=== PATIENT | female | born 1940 | race African-American/Black ===

== ENCOUNTER 2020-02-21 12:56 | Inpatient (IN) | payer MEDICARE, MEDICAID, OTHER ==
[~2020-02-21] VITALS: Ht 162.6 cm; Wt 71.2 kg
[2020-02-21 15:06] LABS: CHLORIDE 106 mEq/L (98-107)
[2020-02-21 15:09] LABS: INR 0.9; PROTHROMBIN TIME 9.7 sec (9.6-11.0)
[2020-02-21 15:21] LABS: BASOPHILS % 0.2 % (0.0-2.0); HEMATOCRIT. 32.9 % (36.0-48.0); HEMOGLOBIN. 10.7 g/dL (12.0-16.0); LYMPHOCYTES % 17.2 % (20.0-50.0); MEAN CORPUSCULAR HEMOGLOBIN 27.6 pg (28.0-32.0); MEAN CORPUSCULAR VOLUME 84.7 fL (81.0-99.0); MEAN PLATELET VOLUME 8.2 fl (7.4-10.4); MONOCYTES % 6.2 % (2.0-8.0); NEUTROPHILS % 76.4 % (40.0-76.0); PLATELET 280 x1000/uL (130-400); RED BLOOD CELL COUNT 3.89 mill/uL (4.2-5.4); RED CELL DISTRIBUTION WIDTH 14.9 % (11.6-14.6)
[2020-02-21 15:40] LABS: CLARITY URINE TURBID (CLEAR); COLOR URINE YELLOW (YELLOW); KETONES URINE NEGATIVE (NEGATIVE); LEUKOCYTE ESTERASE URINE 3+ (NEGATIVE); NITRITE URINE POSITIVE (NEGATIVE); OCCULT BLOOD URINE 1+ (NEGATIVE); PH URINE 5.5 (4.5-8.0); PROTEIN URINE 3+ (NEGATIVE); SPECIFIC GRAVITY URINE 1.016 (1.005-1.030)
[2020-02-21] MEDS ORDERED: CEFTRIAXONE 2 G PREMIX 50 ML IV ONE (17:15)
[2020-02-21] MEDS ORDERED: MAGNESIUM/ALUMINUM HYDROXIDE/SIMETHICONE 30ML UDC PO PRN (17:45)
[2020-02-21] MEDS ORDERED: ACETAMINOPHEN 325MG TABLET PO PRN (17:45)
[2020-02-21] MEDS ORDERED: SODIUM CHLORIDE 0.45% 1,000 ML IV SCH (17:45)
[2020-02-21] MEDS: ENOXAPARIN 40MG/0.4ML SYR SUBCUT SCH (18:56)
[2020-02-21] MEDS: CLONIDINE 0.1MG TABLET PO PRN (21:24)
[2020-02-21] MEDS: FAMOTIDINE 20MG TABLET PO SCH (21:24)
[2020-02-22 04:37] LABS: CHLORIDE 108 mEq/L (98-107)
[2020-02-22 04:41] LABS: BASOPHILS % 0.2 % (0.0-2.0); HEMATOCRIT. 32.6 % (36.0-48.0); HEMOGLOBIN. 10.6 g/dL (12.0-16.0); LYMPHOCYTES % 13.6 % (20.0-50.0); MEAN CORPUSCULAR HEMOGLOBIN 27.6 pg (28.0-32.0); MEAN CORPUSCULAR VOLUME 85.2 fL (81.0-99.0); MEAN PLATELET VOLUME 8.1 fl (7.4-10.4); MONOCYTES % 4.9 % (2.0-8.0); NEUTROPHILS % 81.3 % (40.0-76.0); PLATELET 285 x1000/uL (130-400); RED BLOOD CELL COUNT 3.83 mill/uL (4.2-5.4); RED CELL DISTRIBUTION WIDTH 15.2 % (11.6-14.6)
[2020-02-22] MEDS: DOCUSATE SODIUM 250MG CAPSULE PO SCH ×2 (09:00→09:31)
[2020-02-22] MEDS: DEXT 5%/0.45% NACL 1000ML 1,000 ML IV SCH ×2 (10:48→23:31)
[2020-02-22] MEDS ORDERED: SODIUM POLYSTYRENE SULFONATE 15 G/60 ML BOT PR NR (11:00)
[2020-02-22] MEDS ORDERED: AZITHROMYCIN 500 MG TABLET PO NR (15:30)
[2020-02-22] MEDS ORDERED: AZITHROMYCIN 500MG in DEXTROSE 5% WATER 250ML IV SCH (17:00)
[2020-02-22] MEDS ORDERED: CEFTRIAXONE 1 G PREMIX 50 ML IV SCH (18:00)
[2020-02-22] MEDS ORDERED: DEXTROSE 50% WATER 50ML SYRINGE IV NR (18:40)
[2020-02-22] MEDS ORDERED: DEXTROSE 50% WATER 50ML SYRINGE IV ONE (18:42)
[2020-02-22] MEDS ORDERED: DEXTROSE 5% WATER 1,000 ML IV ONE (18:45)
[2020-02-22] MEDS ORDERED: DEXTROSE 5% WATER 1,000 ML IV NR (18:45)
[2020-02-22] MEDS: ENOXAPARIN 40MG/0.4ML SYR SUBCUT SCH (18:51)
[2020-02-22] MEDS ORDERED: DEXTROSE 50% WATER 50ML SYRINGE IV PRN (21:00)
[2020-02-22] MEDS: BLOOD SUGAR DIAGNOSTIC STRIP TEST SCH (21:00)
[2020-02-22] MEDS: FAMOTIDINE 20MG TABLET PO SCH (21:00)
[2020-02-22] MEDS: INSULIN LISPRO (LOW DOSE) 100 UNITS/ML SUBCUT SCH (21:15)
[2020-02-22 21:30] VITALS: BP_SYST 130; BP_DIAS 65; BP_DIAS 74
[2020-02-22] MEDS ORDERED: ATOR20TA65 PO (22:57)
[2020-02-22] MEDS ORDERED: BISA10SU62 RC (22:57)
[2020-02-22] MEDS ORDERED: MOM PO (22:57)
[2020-02-22] MEDS ORDERED: AMA1 PO (22:57)
[2020-02-22] MEDS ORDERED: ASCO-339 PO (22:57)
[2020-02-22] MEDS ORDERED: CYAN250010 PO (22:57)
[2020-02-22] MEDS ORDERED: MULT-230 PO (22:57)
[2020-02-22] MEDS ORDERED: DIVA250T4 PO (22:57)
[2020-02-22] MEDS ORDERED: ACET650T37 PO (22:57)
[2020-02-22] MEDS ORDERED: FERR325T6 PO (22:57)
[2020-02-22] MEDS ORDERED: DONE10TA43 PO (22:57)
[2020-02-22] MEDS ORDERED: ERGO2000 PO (22:57)
[2020-02-22] MEDS ORDERED: IPRA3AMP31 IH (22:57)
[2020-02-22] MEDS ORDERED: RISP0.2514 PO (22:57)
[2020-02-22] MEDS ORDERED: DOCU250C69 PO (22:57)
[2020-02-22] MEDS ORDERED: INSULIN REGULAR (HUMULIN R) UD 100 UNITS/ML SYR SUBCUT NR (23:00)
[2020-02-23] VITALS: BP 125/68
[2020-02-23 04:00] VITALS: BP 140/54
[2020-02-23] MEDS: INSULIN LISPRO (LOW DOSE) 100 UNITS/ML SUBCUT SCH ×4 (05:49→21:00)
[2020-02-23] MEDS: BLOOD SUGAR DIAGNOSTIC STRIP TEST SCH ×4 (05:49→21:11)
[2020-02-23 08:00] VITALS: BP 157/68
[2020-02-23] MEDS: DOCUSATE SODIUM 250MG CAPSULE PO SCH (09:01)
[2020-02-23] MEDS: AZITHROMYCIN 250 MG TABLET PO SCH (09:02)
[2020-02-23] MEDS: DEXT 5%/0.45% NACL 1000ML 1,000 ML IV SCH (12:04)
[2020-02-23 12:33] LABS: COVID-19 PCR RNA DETECTED
[2020-02-23 12:34] LABS: COVID-19 PCR RNA NOT DETECTED
[2020-02-23 12:51] VITALS: BP 107/71
[2020-02-23 14:55] LABS: BASOPHILS % 0.4 % (0.0-2.0); EOSINOPHILS % 0.1 % (0.0-5.0); HEMATOCRIT. 33.4 % (36.0-48.0); HEMOGLOBIN. 10.9 g/dL (12.0-16.0); LYMPHOCYTES % 13.5 % (20.0-50.0); MEAN CORPUSCULAR HEMOGLOBIN 27.6 pg (28.0-32.0); MEAN CORPUSCULAR VOLUME 84.3 fL (81.0-99.0); MEAN PLATELET VOLUME 8.2 fl (7.4-10.4); MONOCYTES % 5.2 % (2.0-8.0); NEUTROPHILS % 80.8 % (40.0-76.0); PLATELET 326 x1000/uL (130-400); RED BLOOD CELL COUNT 3.96 mill/uL (4.2-5.4); RED CELL DISTRIBUTION WIDTH 15.1 % (11.6-14.6)
[2020-02-23] MEDS: CEFTRIAXONE 1 G PREMIX 50 ML IV SCH (16:35)
[2020-02-23] MEDS: ENOXAPARIN 40MG/0.4ML SYR SUBCUT SCH (16:36)
[2020-02-23 16:56] VITALS: BP 154/58
[2020-02-23 20:00] VITALS: BP 149/54
[2020-02-23] MEDS: FAMOTIDINE 20MG TABLET PO SCH (21:00)
[2020-02-24] VITALS: BP 149/84
[2020-02-24] MEDS: DEXT 5%/0.45% NACL 1000ML 1,000 ML IV SCH ×2 (03:02→15:20)
[2020-02-24 04:00] VITALS: BP 150/66
[2020-02-24 05:30] LABS: PHOSPHORUS 3.1 mg/dL (2.5-4.9)
[2020-02-24] MEDS: INSULIN LISPRO (LOW DOSE) 100 UNITS/ML SUBCUT SCH ×4 (05:48→21:00)
[2020-02-24] MEDS: BLOOD SUGAR DIAGNOSTIC STRIP TEST SCH ×4 (05:48→21:57)
[2020-02-24] MEDS: ZINC SULFATE 220 MG ( 50 ) CAPSULE PO SCH (09:20)
[2020-02-24] MEDS: DOCUSATE SODIUM 250MG CAPSULE PO SCH (09:20)
[2020-02-24] MEDS: AZITHROMYCIN 250 MG TABLET PO SCH (09:20)
[2020-02-24] MEDS: ASCORBIC ACID 500 MG TABLET PO SCH ×2 (09:20→21:57)
[2020-02-24] MEDS: GUAIFENESIN 600MG ER TABLET PO SCH ×2 (09:20→21:57)
[2020-02-24 09:24] VITALS: BP 161/66
[2020-02-24] MEDS: CLONIDINE 0.1MG TABLET PO PRN ×2 (09:24→22:01)
[2020-02-24 11:52] VITALS: BP 113/59
[2020-02-24 12:20] LABS: TOTAL IRON BINDING CAPACITY 46 ug/dL (250-450)
[2020-02-24] MEDS: ERGOCALCIFEROL 50000UNITS CAPSULE PO SCH (15:19)
[2020-02-24 15:37] LABS: CHLORIDE 107 mEq/L (98-107)
[2020-02-24] MEDS ORDERED: SODIUM POLYSTYRENE SULFONATE 15 G/60 ML BOT PO SCH (17:00)
[2020-02-24] MEDS: ENOXAPARIN 40MG/0.4ML SYR SUBCUT SCH (17:18)
[2020-02-24] MEDS: CEFTRIAXONE 1 G PREMIX 50 ML IV SCH (17:18)
[2020-02-24] MEDS: MONTELUKAST SODIUM 10MG TABLET PO SCH (17:19)
[2020-02-24 20:00] VITALS: BP 161/73
[2020-02-24] MEDS: FAMOTIDINE 20MG TABLET PO SCH (21:57)
[2020-02-25] VITALS: BP 159/75
[2020-02-25 04:00] VITALS: BP 150/69
[2020-02-25] MEDS: INSULIN LISPRO (LOW DOSE) 100 UNITS/ML SUBCUT SCH ×4 (05:52→21:30)
[2020-02-25] MEDS: BLOOD SUGAR DIAGNOSTIC STRIP TEST SCH ×4 (05:52→21:27)
[2020-02-25 07:07] LABS: MEAN CORPUSCULAR HEMOGLOBIN 28.5 pg (28.0-32.0); MEAN CORPUSCULAR VOLUME 82.9 fL (81.0-99.0); MEAN PLATELET VOLUME 7.5 fl (7.4-10.4); PLATELET 410 x1000/uL (130-400); RED BLOOD CELL COUNT 3.49 mill/uL (4.2-5.4); RED CELL DISTRIBUTION WIDTH 14.8 % (11.6-14.6)
[2020-02-25 07:45] LABS: CHLORIDE 106 mEq/L (98-107)
[2020-02-25 08:00] VITALS: BP 155/71
[2020-02-25] MEDS: ASCORBIC ACID 500 MG TABLET PO SCH ×2 (09:07→21:27)
[2020-02-25] MEDS: AZITHROMYCIN 250 MG TABLET PO SCH (09:08)
[2020-02-25] MEDS: DOCUSATE SODIUM 250MG CAPSULE PO SCH (09:08)
[2020-02-25] MEDS: GUAIFENESIN 600MG ER TABLET PO SCH ×2 (09:08→21:27)
[2020-02-25] MEDS: ZINC SULFATE 220 MG ( 50 ) CAPSULE PO SCH (09:08)
[2020-02-25 11:20] LABS: PLATELET ESTIMATE NORMAL
[2020-02-25 12:00] VITALS: BP 142/66
[2020-02-25 13:06] LABS: INSULIN 3.9 uIU/mL (2.6-24.9)
[2020-02-25] MEDS: ONDANSETRON HCL 4MG/2ML INJ IV PRN (15:02)
[2020-02-25 16:00] VITALS: BP 130/62
[2020-02-25] MEDS: CEFTRIAXONE 1 G PREMIX 50 ML IV SCH (17:30)
[2020-02-25] MEDS: ENOXAPARIN 40MG/0.4ML SYR SUBCUT SCH (17:31)
[2020-02-25] MEDS: MONTELUKAST SODIUM 10MG TABLET PO SCH (17:31)
[2020-02-25 20:00] VITALS: BP 143/67
[2020-02-25] MEDS: FAMOTIDINE 20MG TABLET PO SCH (21:27)
[2020-02-26] VITALS: BP 113/50
[2020-02-26 04:00] VITALS: BP 146/68
[2020-02-26] MEDS: BLOOD SUGAR DIAGNOSTIC STRIP TEST SCH ×4 (06:22→21:47)
[2020-02-26] MEDS: INSULIN LISPRO (LOW DOSE) 100 UNITS/ML SUBCUT SCH ×4 (06:22→21:00)
[2020-02-26 08:00] VITALS: BP 151/52
[2020-02-26] MEDS: ASCORBIC ACID 500 MG TABLET PO SCH ×2 (08:31→21:47)
[2020-02-26] MEDS: ZINC SULFATE 220 MG ( 50 ) CAPSULE PO SCH (08:31)
[2020-02-26] MEDS: GUAIFENESIN 600MG ER TABLET PO SCH ×2 (08:31→21:47)
[2020-02-26] MEDS: DOCUSATE SODIUM 250MG CAPSULE PO SCH (08:32)
[2020-02-26] MEDS: AZITHROMYCIN 250 MG TABLET PO SCH (08:32)
[2020-02-26 12:19] VITALS: BP 110/54
[2020-02-26 14:09] LABS: PRO INSULIN 4.5 pmol/L (0.0-10.0)
[2020-02-26 16:21] VITALS: BP 160/58
[2020-02-26] MEDS: MONTELUKAST SODIUM 10MG TABLET PO SCH (16:27)
[2020-02-26] MEDS: ENOXAPARIN 40MG/0.4ML SYR SUBCUT SCH (17:31)
[2020-02-26] MEDS: LIDOCAINE HCL 4% CREAM 76GM TUBE TP SCH (17:31)
[2020-02-26] MEDS: CEFTRIAXONE 1 G PREMIX 50 ML IV SCH (17:34)
[2020-02-26 20:00] VITALS: BP 148/45
[2020-02-26] MEDS: FAMOTIDINE 20MG TABLET PO SCH (21:47)
[2020-02-27] VITALS (7 sets, daily range): BP systolic 111–165; BP diastolic 49–70
[2020-02-27] MEDS: LIDOCAINE HCL 4% CREAM 76GM TUBE TP SCH ×2 (06:10→18:00)
[2020-02-27] MEDS: BLOOD SUGAR DIAGNOSTIC STRIP TEST SCH ×4 (06:10→21:00)
[2020-02-27] MEDS: INSULIN LISPRO (LOW DOSE) 100 UNITS/ML SUBCUT SCH ×4 (06:11→21:00)
[2020-02-27] MEDS: ASCORBIC ACID 500 MG TABLET PO SCH ×2 (09:56→21:00)
[2020-02-27] MEDS: DOCUSATE SODIUM 250MG CAPSULE PO SCH (09:56)
[2020-02-27] MEDS: AZITHROMYCIN 250 MG TABLET PO SCH (09:56)
[2020-02-27] MEDS: ZINC SULFATE 220 MG ( 50 ) CAPSULE PO SCH (09:56)
[2020-02-27] MEDS: GUAIFENESIN 600MG ER TABLET PO SCH ×2 (13:01→21:00)
[2020-02-27 18:24] LABS: HEMATOCRIT. 27.5 % (36.0-48.0); HEMOGLOBIN. 9.4 g/dL (12.0-16.0); MEAN CORPUSCULAR HEMOGLOBIN 28.3 pg (28.0-32.0); MEAN CORPUSCULAR VOLUME 82.6 fL (81.0-99.0); MEAN PLATELET VOLUME 7.1 fl (7.4-10.4); PLATELET 635 x1000/uL (130-400); RED BLOOD CELL COUNT 3.33 mill/uL (4.2-5.4); RED CELL DISTRIBUTION WIDTH 15.4 % (11.6-14.6)
[2020-02-27] MEDS: MONTELUKAST SODIUM 10MG TABLET PO SCH (18:45)
[2020-02-27] MEDS: ENOXAPARIN 40MG/0.4ML SYR SUBCUT SCH (18:46)
[2020-02-27] MEDS: CEFTRIAXONE 1 G PREMIX 50 ML IV SCH (18:46)
[2020-02-27 19:05] LABS: PLATELET ESTIMATE INCREASED
[2020-02-27] MEDS: FAMOTIDINE 20MG TABLET PO SCH (21:00)
[2020-02-28] VITALS: BP 155/66
[2020-02-28 04:00] VITALS: BP 159/76
[2020-02-28] MEDS: BLOOD SUGAR DIAGNOSTIC STRIP TEST SCH ×4 (05:44→21:36)
[2020-02-28] MEDS: LIDOCAINE HCL 4% CREAM 76GM TUBE TP SCH ×2 (05:44→17:27)
[2020-02-28] MEDS: INSULIN LISPRO (LOW DOSE) 100 UNITS/ML SUBCUT SCH ×4 (05:45→21:00)
[2020-02-28] MEDS: ASCORBIC ACID 500 MG TABLET PO SCH ×2 (08:51→21:36)
[2020-02-28] MEDS: DOCUSATE SODIUM 250MG CAPSULE PO SCH (08:51)
[2020-02-28] MEDS: GUAIFENESIN 600MG ER TABLET PO SCH ×2 (08:51→21:36)
[2020-02-28] MEDS: ZINC SULFATE 220 MG ( 50 ) CAPSULE PO SCH (08:51)
[2020-02-28 09:50] VITALS: BP 148/84
[2020-02-28 12:21] VITALS: BP 164/69
[2020-02-28] MEDS: SODIUM CHLORIDE 0.45% 1,000 ML IV SCH ×2 (14:18→23:20)
[2020-02-28 16:56] VITALS: BP 164/74
[2020-02-28] MEDS: ENOXAPARIN 40MG/0.4ML SYR SUBCUT SCH (17:26)
[2020-02-28] MEDS: MONTELUKAST SODIUM 10MG TABLET PO SCH (17:26)
[2020-02-28 20:00] VITALS: BP 162/76
[2020-02-28] MEDS: FAMOTIDINE 20MG TABLET PO SCH (21:36)
[2020-02-28] MEDS: CLONIDINE 0.1MG TABLET PO PRN (21:36)
[2020-02-29] VITALS: BP 155/70
[2020-02-29 04:00] VITALS: BP 165/69
[2020-02-29] MEDS: CLONIDINE 0.1MG TABLET PO PRN (05:45)
[2020-02-29] MEDS: LIDOCAINE HCL 4% CREAM 76GM TUBE TP SCH ×2 (05:47→17:23)
[2020-02-29] MEDS: BLOOD SUGAR DIAGNOSTIC STRIP TEST SCH ×4 (05:47→21:31)
[2020-02-29] MEDS: INSULIN LISPRO (LOW DOSE) 100 UNITS/ML SUBCUT SCH ×4 (06:10→21:00)
[2020-02-29 08:00] VITALS: BP 162/63
[2020-02-29] MEDS: ASCORBIC ACID 500 MG TABLET PO SCH ×2 (09:00→21:39)
[2020-02-29] MEDS: DOCUSATE SODIUM 250MG CAPSULE PO SCH (09:00)
[2020-02-29] MEDS: ZINC SULFATE 220 MG ( 50 ) CAPSULE PO SCH (09:00)
[2020-02-29] MEDS: GUAIFENESIN 600MG ER TABLET PO SCH ×2 (09:00→21:39)
[2020-02-29 12:00] VITALS: BP 156/60
[2020-02-29] MEDS: NITROFURANTOIN 100MG M/M CAPSULE PO SCH ×2 (14:12→21:39)
[2020-02-29 16:00] VITALS: BP 129/66
[2020-02-29] MEDS: MONTELUKAST SODIUM 10MG TABLET PO SCH (17:15)
[2020-02-29] MEDS: ENOXAPARIN 40MG/0.4ML SYR SUBCUT SCH (17:15)
[2020-02-29 20:00] VITALS: BP 124/58
[2020-02-29] MEDS: FAMOTIDINE 20MG TABLET PO SCH (21:39)
[2020-03-01] VITALS: BP 165/67
[2020-03-01] MEDS: CLONIDINE 0.1MG TABLET PO PRN ×3 (00:17→17:11)
[2020-03-01 04:00] VITALS: BP 158/67
[2020-03-01] MEDS: BLOOD SUGAR DIAGNOSTIC STRIP TEST SCH ×4 (05:45→21:39)
[2020-03-01] MEDS: LIDOCAINE HCL 4% CREAM 76GM TUBE TP SCH ×2 (05:45→17:12)
[2020-03-01] MEDS: INSULIN LISPRO (LOW DOSE) 100 UNITS/ML SUBCUT SCH ×4 (07:10→21:00)
[2020-03-01 08:00] VITALS: BP 163/77
[2020-03-01] MEDS: DOCUSATE SODIUM 250MG CAPSULE PO SCH (09:21)
[2020-03-01] MEDS: ASCORBIC ACID 500 MG TABLET PO SCH ×2 (09:21→21:46)
[2020-03-01] MEDS: ZINC SULFATE 220 MG ( 50 ) CAPSULE PO SCH (09:21)
[2020-03-01] MEDS: NITROFURANTOIN 100MG M/M CAPSULE PO SCH ×2 (09:21→21:45)
[2020-03-01] MEDS: GUAIFENESIN 600MG ER TABLET PO SCH ×2 (09:21→21:46)
[2020-03-01 10:34] LABS: CHLORIDE 108 mEq/L (98-107)
[2020-03-01 10:36] LABS: BASOPHILS % 0.3 % (0.0-2.0); EOSINOPHILS % 1.7 % (0.0-5.0); HEMATOCRIT. 30.6 % (36.0-48.0); HEMOGLOBIN. 9.9 g/dL (12.0-16.0); LYMPHOCYTES % 12.2 % (20.0-50.0); MEAN CORPUSCULAR HEMOGLOBIN 26.5 pg (28.0-32.0); MEAN CORPUSCULAR VOLUME 81.8 fL (81.0-99.0); MEAN PLATELET VOLUME 7.1 fl (7.4-10.4); NEUTROPHILS % 78.8 % (40.0-76.0); PLATELET 718 x1000/uL (130-400); RED BLOOD CELL COUNT 3.74 mill/uL (4.2-5.4)
[2020-03-01 12:00] VITALS: BP 171/69
[2020-03-01] MEDS ORDERED: SODIUM POLYSTYRENE SULFONATE 15 G/60 ML BOT PO NR (13:22)
[2020-03-01] MEDS: NIFEDIPINE XL 60MG TAB PO NR (13:46)
[2020-03-01 16:00] VITALS: BP_SYST 149; BP_SYST 167; BP_DIAS 73; BP_DIAS 76
[2020-03-01] MEDS: MONTELUKAST SODIUM 10MG TABLET PO SCH (17:11)
[2020-03-01] MEDS: ENOXAPARIN 40MG/0.4ML SYR SUBCUT SCH (17:12)
[2020-03-01] MEDS: CEFEPIME 1,000 MG in DEXTROSE 5% WATER 50 ML IV SCH (17:16)
[2020-03-01 20:00] VITALS: BP 116/66
[2020-03-01] MEDS: FAMOTIDINE 20MG TABLET PO SCH (21:46)
[2020-03-02] VITALS: BP 118/62
[2020-03-02 04:00] VITALS: BP 128/57
[2020-03-02] MEDS: LIDOCAINE HCL 4% CREAM 76GM TUBE TP SCH ×2 (05:19→17:03)
[2020-03-02] MEDS: CEFEPIME 1,000 MG in DEXTROSE 5% WATER 50 ML IV SCH ×2 (05:19→17:03)
[2020-03-02 08:00] VITALS: BP 141/59
[2020-03-02] MEDS: ZINC SULFATE 220 MG ( 50 ) CAPSULE PO SCH (09:28)
[2020-03-02] MEDS: GUAIFENESIN 600MG ER TABLET PO SCH ×2 (09:28→21:30)
[2020-03-02] MEDS: NITROFURANTOIN 100MG M/M CAPSULE PO SCH (09:28)
[2020-03-02] MEDS: DOCUSATE SODIUM 250MG CAPSULE PO SCH (09:29)
[2020-03-02] MEDS: ERGOCALCIFEROL 50000UNITS CAPSULE PO SCH (09:29)
[2020-03-02] MEDS: ASCORBIC ACID 500 MG TABLET PO SCH ×2 (09:29→21:30)
[2020-03-02] MEDS: NIFEDIPINE XL 60MG TAB PO SCH (09:29)
[2020-03-02] MEDS ORDERED: FUROSEMIDE 20MG/2ML VIAL IVP NR (09:45)
[2020-03-02 10:21] LABS: HEMATOCRIT. 30.3 % (36.0-48.0); MEAN CORPUSCULAR HEMOGLOBIN 27.4 pg (28.0-32.0); MEAN CORPUSCULAR VOLUME 82.7 fL (81.0-99.0); MEAN PLATELET VOLUME 6.7 fl (7.4-10.4); PLATELET 704 x1000/uL (130-400); RED BLOOD CELL COUNT 3.66 mill/uL (4.2-5.4); RED CELL DISTRIBUTION WIDTH 15.4 % (11.6-14.6)
[2020-03-02 12:00] VITALS: BP 106/73
[2020-03-02] MEDS: INSULIN LISPRO (LOW DOSE) 100 UNITS/ML SUBCUT SCH ×3 (12:10→21:31)
[2020-03-02] MEDS: BLOOD SUGAR DIAGNOSTIC STRIP TEST SCH ×3 (12:16→21:30)
[2020-03-02] MEDS: NIFEDIPINE XL 60MG TAB PO NR (14:29)
[2020-03-02 15:19] LABS: CHLORIDE 110 mEq/L (98-107)
[2020-03-02 16:00] VITALS: BP 107/68
[2020-03-02 16:40] LABS: PLATELET ESTIMATE INCREASED
[2020-03-02] MEDS: MONTELUKAST SODIUM 10MG TABLET PO SCH (16:57)
[2020-03-02] MEDS: ENOXAPARIN 40MG/0.4ML SYR SUBCUT SCH (17:03)
[2020-03-02 20:00] VITALS: BP 145/58
[2020-03-02] MEDS: FAMOTIDINE 20MG TABLET PO SCH (21:30)
[2020-03-02] MEDS: SODIUM CHLORIDE 0.45% 1,000 ML IV SCH (21:31)
[2020-03-03] VITALS: BP 141/77
[2020-03-03 04:00] VITALS: BP 147/73
[2020-03-03] MEDS: CEFEPIME 1,000 MG in DEXTROSE 5% WATER 50 ML IV SCH (05:32)
[2020-03-03] MEDS: LIDOCAINE HCL 4% CREAM 76GM TUBE TP SCH ×2 (05:32→18:05)
[2020-03-03 06:11] LABS: BASOPHILS % 0.4 % (0.0-2.0); EOSINOPHILS % 1.1 % (0.0-5.0); HEMATOCRIT. 29.6 % (36.0-48.0); HEMOGLOBIN. 9.8 g/dL (12.0-16.0); LYMPHOCYTES % 9.3 % (20.0-50.0); MEAN CORPUSCULAR HEMOGLOBIN 27.1 pg (28.0-32.0); MEAN CORPUSCULAR VOLUME 82.4 fL (81.0-99.0); MEAN PLATELET VOLUME 7.1 fl (7.4-10.4); MONOCYTES % 6.5 % (2.0-8.0); NEUTROPHILS % 82.7 % (40.0-76.0); PLATELET 776 x1000/uL (130-400); RED BLOOD CELL COUNT 3.59 mill/uL (4.2-5.4); RED CELL DISTRIBUTION WIDTH 15.4 % (11.6-14.6)
[2020-03-03] MEDS: INSULIN LISPRO (LOW DOSE) 100 UNITS/ML SUBCUT SCH ×4 (06:12→20:51)
[2020-03-03] MEDS: BLOOD SUGAR DIAGNOSTIC STRIP TEST SCH ×4 (06:12→20:51)
[2020-03-03 07:07] LABS: CHLORIDE 109 mEq/L (98-107)
[2020-03-03 08:00] VITALS: BP 139/73
[2020-03-03] MEDS: ASCORBIC ACID 500 MG TABLET PO SCH ×2 (08:49→21:51)
[2020-03-03] MEDS: ZINC SULFATE 220 MG ( 50 ) CAPSULE PO SCH (08:49)
[2020-03-03] MEDS: DOCUSATE SODIUM 250MG CAPSULE PO SCH (08:49)
[2020-03-03] MEDS: NIFEDIPINE XL 60MG TAB PO SCH (08:49)
[2020-03-03] MEDS: GUAIFENESIN 600MG ER TABLET PO SCH ×2 (08:50→21:51)
[2020-03-03] MEDS: SODIUM CHLORIDE 0.45% 1,000 ML IV SCH ×2 (08:50→21:50)
[2020-03-03] MEDS ORDERED: ENOXAPARIN 40MG/0.4ML SYR SUBCUT SCH (09:00)
[2020-03-03] MEDS ORDERED: FUROSEMIDE 20MG/2ML VIAL IVP SCH (09:00)
[2020-03-03] MEDS ORDERED: VANCOMYCIN 1500MG in DEXTROSE 5% WATER 250ML IV SCH (10:00)
[2020-03-03 12:00] VITALS: BP 134/74
[2020-03-03] MEDS: NIFEDIPINE XL 60MG TAB PO NR (12:55)
[2020-03-03] MEDS: PIPERACILLIN/TAZOBACTAM 3.375 G in DEXT 5% WATER 100 ML IV SCH ×3 (12:55→17:58)
[2020-03-03] MEDS ORDERED: SODIUM POLYSTYRENE SULFONATE 15 G/60 ML BOT PO SCH (14:00)
[2020-03-03 16:00] VITALS: BP 141/51
[2020-03-03] MEDS: MONTELUKAST SODIUM 10MG TABLET PO SCH (17:58)
[2020-03-03 20:00] VITALS: BP 139/63
[2020-03-03] MEDS: FAMOTIDINE 20MG TABLET PO SCH (21:51)
[2020-03-03] MEDS: ENOXAPARIN 60MG/0.6ML SYR SUBCUT SCH (21:52)
[2020-03-04] VITALS: BP 146/70
[2020-03-04] MEDS: PIPERACILLIN/TAZOBACTAM 3.375 G in DEXT 5% WATER 100 ML IV SCH ×4 (00:12→17:52)
[2020-03-04 04:00] VITALS: BP 153/79
[2020-03-04] MEDS: VANCOMYCIN 1 G PREMIX 200 ML IV SCH (05:37)
[2020-03-04] MEDS: BLOOD SUGAR DIAGNOSTIC STRIP TEST SCH ×4 (05:41→21:39)
[2020-03-04] MEDS: LIDOCAINE HCL 4% CREAM 76GM TUBE TP SCH ×2 (05:41→16:37)
[2020-03-04] MEDS: INSULIN LISPRO (LOW DOSE) 100 UNITS/ML SUBCUT SCH ×4 (06:09→21:00)
[2020-03-04 07:00] LABS: HEMATOCRIT. 30.9 % (36.0-48.0); HEMOGLOBIN. 10.3 g/dL (12.0-16.0); MEAN CORPUSCULAR HEMOGLOBIN 27.2 pg (28.0-32.0); MEAN CORPUSCULAR VOLUME 82.2 fL (81.0-99.0); MEAN PLATELET VOLUME 6.8 fl (7.4-10.4); PLATELET 762 x1000/uL (130-400); RED BLOOD CELL COUNT 3.76 mill/uL (4.2-5.4); RED CELL DISTRIBUTION WIDTH 15.3 % (11.6-14.6)
[2020-03-04 07:33] LABS: CHLORIDE 107 mEq/L (98-107)
[2020-03-04 08:00] VITALS: BP 161/72
[2020-03-04] MEDS: ONDANSETRON HCL 4MG/2ML INJ IV PRN (08:53)
[2020-03-04] MEDS: ASCORBIC ACID 500 MG TABLET PO SCH ×2 (08:54→20:23)
[2020-03-04] MEDS: ENOXAPARIN 60MG/0.6ML SYR SUBCUT SCH ×2 (08:54→20:23)
[2020-03-04] MEDS: DOCUSATE SODIUM 250MG CAPSULE PO SCH (08:54)
[2020-03-04] MEDS: GUAIFENESIN 600MG ER TABLET PO SCH ×3 (08:54→20:22)
[2020-03-04] MEDS: NIFEDIPINE XL 60MG TAB PO SCH (08:55)
[2020-03-04] MEDS: ZINC SULFATE 220 MG ( 50 ) CAPSULE PO SCH (08:55)
[2020-03-04 12:00] VITALS: BP 123/48
[2020-03-04 13:27] LABS: PLATELET ESTIMATE INCREASED
[2020-03-04] MEDS ORDERED: SODIUM POLYSTYRENE SULFONATE 15 G/60 ML BOT PO NR (14:00)
[2020-03-04 16:00] VITALS: BP 115/62
[2020-03-04] MEDS: MONTELUKAST SODIUM 10MG TABLET PO SCH (16:29)
[2020-03-04] MEDS ORDERED: ALBUTEROL 6.7GM HFA INHALER ORI PRN ×3 (17:00→17:15)
[2020-03-04] MEDS ORDERED: FUROSEMIDE 40MG/4ML VIAL IVP NR (17:00)
[2020-03-04] MEDS ORDERED: METHYLPREDNISOLONE SOD SUCC 40 MG/ML VIAL IV NR (18:07)
[2020-03-04 20:00] VITALS: BP 132/79
[2020-03-04] MEDS ORDERED: ALBUTEROL 6.7GM HFA INHALER ORI SCH (20:00)
[2020-03-04] MEDS: FAMOTIDINE 20MG TABLET PO SCH (20:24)
[2020-03-04] MEDS: METHYLPREDNISOLONE SOD SUCC 125 MG/2 ML VIAL IV SCH (20:25)
[2020-03-05] VITALS: BP 155/84
[2020-03-05 04:00] VITALS: BP 159/72
[2020-03-05] MEDS: METHYLPREDNISOLONE SOD SUCC 125 MG/2 ML VIAL IV SCH (06:00)
[2020-03-05] MEDS: LIDOCAINE HCL 4% CREAM 76GM TUBE TP SCH ×2 (06:00→18:33)
[2020-03-05] MEDS: PIPERACILLIN/TAZOBACTAM 3.375 G in DEXT 5% WATER 100 ML IV SCH ×5 (06:04→18:31)
[2020-03-05 06:15] LABS: BASOPHILS % 0.1 % (0.0-2.0); HEMATOCRIT. 30.9 % (36.0-48.0); HEMOGLOBIN. 10.2 g/dL (12.0-16.0); LYMPHOCYTES % 15.3 % (20.0-50.0); MEAN CORPUSCULAR HEMOGLOBIN 27.2 pg (28.0-32.0); MEAN CORPUSCULAR VOLUME 82.4 fL (81.0-99.0); MEAN PLATELET VOLUME 6.7 fl (7.4-10.4); MONOCYTES % 1.2 % (2.0-8.0); NEUTROPHILS % 83.4 % (40.0-76.0); PLATELET 718 x1000/uL (130-400); RED BLOOD CELL COUNT 3.75 mill/uL (4.2-5.4); RED CELL DISTRIBUTION WIDTH 15.4 % (11.6-14.6)
[2020-03-05] MEDS: INSULIN LISPRO (LOW DOSE) 100 UNITS/ML SUBCUT SCH ×4 (07:10→21:00)
[2020-03-05] MEDS: BLOOD SUGAR DIAGNOSTIC STRIP TEST SCH ×4 (07:24→21:00)
[2020-03-05 08:00] VITALS: BP 157/93
[2020-03-05] MEDS: GUAIFENESIN 600MG ER TABLET PO SCH ×2 (09:19→22:30)
[2020-03-05] MEDS: ZINC SULFATE 220 MG ( 50 ) CAPSULE PO SCH (09:19)
[2020-03-05] MEDS: ASCORBIC ACID 500 MG TABLET PO SCH ×2 (09:19→22:10)
[2020-03-05] MEDS: ENOXAPARIN 60MG/0.6ML SYR SUBCUT SCH (09:19)
[2020-03-05] MEDS: DOCUSATE SODIUM 250MG CAPSULE PO SCH (09:19)
[2020-03-05] MEDS: NIFEDIPINE XL 60MG TAB PO SCH (09:19)
[2020-03-05] MEDS: FUROSEMIDE 20MG/2ML VIAL IVP SCH (09:22)
[2020-03-05] MEDS ORDERED: FUROSEMIDE 40MG/4ML VIAL IVP NR (09:30)
[2020-03-05] MEDS: ALBUTEROL 6.7GM HFA INHALER ORI SCH ×3 (10:00→22:00)
[2020-03-05 12:00] VITALS: BP 136/70
[2020-03-05 16:00] VITALS: BP 150/81
[2020-03-05] MEDS: VANCOMYCIN 1 G PREMIX 200 ML IV SCH ×2 (18:31)
[2020-03-05] MEDS: MONTELUKAST SODIUM 10MG TABLET PO SCH (18:32)
[2020-03-05] MEDS: APIXABAN 5 MG TABLET PO SCH (18:32)
[2020-03-05 20:00] VITALS: BP 135/81
[2020-03-05] MEDS: FAMOTIDINE 20MG TABLET PO SCH (22:10)
[2020-03-06] VITALS: BP 138/111
[2020-03-06] MEDS: PIPERACILLIN/TAZOBACTAM 3.375 G in DEXT 5% WATER 100 ML IV SCH ×4 (00:41→18:10)
[2020-03-06 04:00] VITALS: BP 147/72
[2020-03-06] MEDS: METHYLPREDNISOLONE SOD SUCC 40 MG/ML VIAL IV SCH (06:00)
[2020-03-06] MEDS: LIDOCAINE HCL 4% CREAM 76GM TUBE TP SCH ×2 (06:00→18:00)
[2020-03-06] MEDS: INSULIN LISPRO (LOW DOSE) 100 UNITS/ML SUBCUT SCH ×4 (06:50→21:00)
[2020-03-06] MEDS: BLOOD SUGAR DIAGNOSTIC STRIP TEST SCH ×4 (06:50→21:23)
[2020-03-06 08:00] VITALS: BP 144/75
[2020-03-06] MEDS ORDERED: LACTULOSE 20G/30ML UDC PO NR (09:30)
[2020-03-06] MEDS: GUAIFENESIN 600MG ER TABLET PO SCH ×2 (09:55→21:22)
[2020-03-06] MEDS: ASCORBIC ACID 500 MG TABLET PO SCH ×2 (09:55→21:22)
[2020-03-06] MEDS: NIFEDIPINE XL 60MG TAB PO SCH (09:55)
[2020-03-06] MEDS: ZINC SULFATE 220 MG ( 50 ) CAPSULE PO SCH (09:55)
[2020-03-06] MEDS: DOCUSATE SODIUM 250MG CAPSULE PO SCH (09:56)
[2020-03-06] MEDS: FUROSEMIDE 20MG/2ML VIAL IVP SCH (09:56)
[2020-03-06] MEDS: APIXABAN 5 MG TABLET PO SCH ×2 (09:56→17:34)
[2020-03-06] MEDS: ALBUTEROL 6.7GM HFA INHALER ORI SCH ×4 (10:50→20:18)
[2020-03-06 12:00] VITALS: BP 145/81
[2020-03-06] MEDS: VANCOMYCIN 1 G PREMIX 200 ML IV SCH (13:51)
[2020-03-06 16:00] VITALS: BP 142/66
[2020-03-06] MEDS: MONTELUKAST SODIUM 10MG TABLET PO SCH (17:34)
[2020-03-06 20:00] VITALS: BP 137/69
[2020-03-06] MEDS: FAMOTIDINE 20MG TABLET PO SCH (21:22)
[2020-03-07] VITALS: BP 160/73
[2020-03-07] MEDS: PIPERACILLIN/TAZOBACTAM 3.375 G in DEXT 5% WATER 100 ML IV SCH ×5 (00:15→23:46)
[2020-03-07 04:00] VITALS: BP 140/68
[2020-03-07] MEDS: METHYLPREDNISOLONE SOD SUCC 40 MG/ML VIAL IV SCH ×2 (05:44→12:33)
[2020-03-07] MEDS: BLOOD SUGAR DIAGNOSTIC STRIP TEST SCH ×4 (06:39→21:12)
[2020-03-07] MEDS: INSULIN LISPRO (LOW DOSE) 100 UNITS/ML SUBCUT SCH ×4 (06:39→21:00)
[2020-03-07] MEDS: LIDOCAINE HCL 4% CREAM 76GM TUBE TP SCH ×2 (06:45→17:41)
[2020-03-07] MEDS: DOCUSATE SODIUM 250MG CAPSULE PO SCH (09:39)
[2020-03-07] MEDS: ASCORBIC ACID 500 MG TABLET PO SCH ×2 (09:39→20:59)
[2020-03-07] MEDS: ZINC SULFATE 220 MG ( 50 ) CAPSULE PO SCH (09:39)
[2020-03-07] MEDS: APIXABAN 5 MG TABLET PO SCH ×2 (09:40→17:28)
[2020-03-07] MEDS: GUAIFENESIN 600MG ER TABLET PO SCH ×2 (09:40→20:59)
[2020-03-07] MEDS: NIFEDIPINE XL 60MG TAB PO SCH (09:53)
[2020-03-07] MEDS: ALBUTEROL 6.7GM HFA INHALER ORI SCH ×2 (10:00→12:37)
[2020-03-07 10:12] LABS: BASOPHILS % 0.4 % (0.0-2.0); EOSINOPHILS % 0.8 % (0.0-5.0); HEMATOCRIT. 29.6 % (36.0-48.0); HEMOGLOBIN. 9.8 g/dL (12.0-16.0); LYMPHOCYTES % 16.2 % (20.0-50.0); MEAN CORPUSCULAR VOLUME 81.5 fL (81.0-99.0); MEAN PLATELET VOLUME 6.9 fl (7.4-10.4); MONOCYTES % 5.4 % (2.0-8.0); NEUTROPHILS % 77.2 % (40.0-76.0); PLATELET 696 x1000/uL (130-400); RED BLOOD CELL COUNT 3.64 mill/uL (4.2-5.4); RED CELL DISTRIBUTION WIDTH 15.8 % (11.6-14.6)
[2020-03-07 10:15] VITALS: BP 150/61
[2020-03-07 10:22] LABS: CHLORIDE 108 mEq/L (98-107)
[2020-03-07] MEDS ORDERED: LIDOCAINE HCL 1% 20ML VIAL (Pyxis) INJ ONE (11:47)
[2020-03-07] MEDS: FUROSEMIDE 20MG/2ML VIAL IVP SCH (12:25)
[2020-03-07 13:06] VITALS: BP 148/73
[2020-03-07] MEDS: MONTELUKAST SODIUM 10MG TABLET PO SCH (17:29)
[2020-03-07 17:55] VITALS: BP 135/62
[2020-03-07 20:00] VITALS: BP 121/49
[2020-03-07] MEDS: FAMOTIDINE 20MG TABLET PO SCH (20:59)
[2020-03-08] VITALS: BP 147/74
[2020-03-08 04:00] VITALS: BP 143/70
[2020-03-08] MEDS: PIPERACILLIN/TAZOBACTAM 3.375 G in DEXT 5% WATER 100 ML IV SCH ×3 (05:49→17:45)
[2020-03-08] MEDS: METHYLPREDNISOLONE SOD SUCC 40 MG/ML VIAL IV SCH (05:49)
[2020-03-08] MEDS: LIDOCAINE HCL 4% CREAM 76GM TUBE TP SCH ×2 (05:50→17:44)
[2020-03-08] MEDS: BLOOD SUGAR DIAGNOSTIC STRIP TEST SCH ×4 (06:38→21:55)
[2020-03-08] MEDS: INSULIN LISPRO (LOW DOSE) 100 UNITS/ML SUBCUT SCH ×4 (06:38→21:00)
[2020-03-08 08:00] VITALS: BP 162/85
[2020-03-08] MEDS: GUAIFENESIN 600MG ER TABLET PO SCH ×2 (08:42→21:50)
[2020-03-08] MEDS: ZINC SULFATE 220 MG ( 50 ) CAPSULE PO SCH (08:42)
[2020-03-08] MEDS: ASCORBIC ACID 500 MG TABLET PO SCH ×2 (08:42→21:50)
[2020-03-08] MEDS: APIXABAN 5 MG TABLET PO SCH ×2 (08:43→16:06)
[2020-03-08] MEDS: DOCUSATE SODIUM 250MG CAPSULE PO SCH (08:44)
[2020-03-08] MEDS: FUROSEMIDE 20MG/2ML VIAL IVP SCH (08:45)
[2020-03-08] MEDS: ALBUTEROL 6.7GM HFA INHALER ORI SCH ×3 (10:00→21:50)
[2020-03-08] MEDS: NIFEDIPINE XL 60MG TAB PO SCH (10:05)
[2020-03-08 12:00] VITALS: BP 164/83
[2020-03-08 15:52] LABS: HEMATOCRIT 28.2 % (36.0-48.0); HEMOGLOBIN 9.4 g/dL (12.0-16.0)
[2020-03-08 16:00] VITALS: BP 172/87
[2020-03-08] MEDS: MONTELUKAST SODIUM 10MG TABLET PO SCH (17:00)
[2020-03-08 20:44] VITALS: BP 161/76
[2020-03-08] MEDS ORDERED: VANCOMYCIN 1,000 MG in DEXT 5% WATER 250 ML IV SCH (21:00)
[2020-03-08] MEDS ORDERED: HYDRALAZINE HCL 25MG TABLET PO NR (21:30)
[2020-03-08] MEDS: FAMOTIDINE 20MG TABLET PO SCH (21:50)
[2020-03-09 00:53] VITALS: BP 117/51
[2020-03-09 04:37] VITALS: BP 121/79
[2020-03-09] MEDS: ALBUTEROL 6.7GM HFA INHALER ORI SCH ×4 (05:46→21:33)
[2020-03-09] MEDS: METHYLPREDNISOLONE SOD SUCC 40 MG/ML VIAL IV SCH (05:49)
[2020-03-09] MEDS: LIDOCAINE HCL 4% CREAM 76GM TUBE TP SCH ×2 (05:49→17:06)
[2020-03-09] MEDS: HYDRALAZINE HCL 25MG TABLET PO SCH ×3 (05:50→21:34)
[2020-03-09] MEDS: INSULIN LISPRO (LOW DOSE) 100 UNITS/ML SUBCUT SCH ×4 (06:06→20:51)
[2020-03-09] MEDS: BLOOD SUGAR DIAGNOSTIC STRIP TEST SCH ×4 (06:06→20:51)
[2020-03-09 08:00] VITALS: BP 150/60
[2020-03-09] MEDS: DOCUSATE SODIUM 250MG CAPSULE PO SCH (08:17)
[2020-03-09] MEDS: APIXABAN 5 MG TABLET PO SCH ×2 (08:20→17:06)
[2020-03-09 08:21] LABS: MEAN CORPUSCULAR HEMOGLOBIN 27.1 pg (28.0-32.0); MEAN CORPUSCULAR VOLUME 81.2 fL (81.0-99.0); PLATELET 569 x1000/uL (130-400); RED BLOOD CELL COUNT 3.47 mill/uL (4.2-5.4); RED CELL DISTRIBUTION WIDTH 15.8 % (11.6-14.6)
[2020-03-09] MEDS: FUROSEMIDE 20MG/2ML VIAL IVP SCH (08:39)
[2020-03-09] MEDS: ZINC SULFATE 220 MG ( 50 ) CAPSULE PO SCH (08:40)
[2020-03-09] MEDS: ASCORBIC ACID 500 MG TABLET PO SCH ×2 (08:40→21:33)
[2020-03-09] MEDS: GUAIFENESIN 600MG ER TABLET PO SCH ×2 (08:40→21:33)
[2020-03-09] MEDS ORDERED: SULFAMETHOXAZOLE/TRIMETHOPRIM 800/160MG TABLET PO SCH (09:00)
[2020-03-09 09:14] LABS: BASOPHILS % 0.4 % (0.0-2.0); EOSINOPHILS % 3.2 % (0.0-5.0); HEMATOCRIT. 27.4 % (36.0-48.0); LYMPHOCYTES % 13.9 % (20.0-50.0); MEAN CORPUSCULAR HEMOGLOBIN 26.9 pg (28.0-32.0); MEAN PLATELET VOLUME 7.4 fl (7.4-10.4); MONOCYTES % 3.8 % (2.0-8.0); NEUTROPHILS % 78.7 % (40.0-76.0); PLATELET 497 x1000/uL (130-400); RED BLOOD CELL COUNT 3.34 mill/uL (4.2-5.4); RED CELL DISTRIBUTION WIDTH 15.9 % (11.6-14.6)
[2020-03-09] MEDS: SULFAMETHOXAZOLE/TRIMETHOPRIM 800/160MG TABLET PO SCH ×2 (09:47→21:33)
[2020-03-09] MEDS: NIFEDIPINE XL 60MG TAB PO SCH (10:02)
[2020-03-09 12:00] VITALS: BP 115/67
[2020-03-09] MEDS ORDERED: POTASSIUM CHLORIDE 20MEQ TABLET SR PO SCH (12:00)
[2020-03-09] MEDS: ERGOCALCIFEROL 50000UNITS CAPSULE PO SCH (12:37)
[2020-03-09 16:00] VITALS: BP 144/66
[2020-03-09] MEDS: MONTELUKAST SODIUM 10MG TABLET PO SCH (17:06)
[2020-03-09 20:00] VITALS: BP 111/51
[2020-03-09] MEDS: FAMOTIDINE 20MG TABLET PO SCH (21:33)
[2020-03-10] VITALS: BP 124/63
[2020-03-10 04:00] VITALS: BP 113/52
[2020-03-10] MEDS: ALBUTEROL 6.7GM HFA INHALER ORI SCH ×3 (04:26→16:51)
[2020-03-10] MEDS: HYDRALAZINE HCL 25MG TABLET PO SCH ×2 (05:13→14:09)
[2020-03-10] MEDS: LIDOCAINE HCL 4% CREAM 76GM TUBE TP SCH ×2 (05:13→18:00)
[2020-03-10] MEDS: INSULIN LISPRO (LOW DOSE) 100 UNITS/ML SUBCUT SCH ×4 (06:16→20:41)
[2020-03-10] MEDS: BLOOD SUGAR DIAGNOSTIC STRIP TEST SCH ×4 (06:16→20:41)
[2020-03-10 08:00] VITALS: BP 113/59
[2020-03-10] MEDS: GUAIFENESIN 600MG ER TABLET PO SCH ×2 (08:37→20:34)
[2020-03-10] MEDS: ZINC SULFATE 220 MG ( 50 ) CAPSULE PO SCH (08:37)
[2020-03-10] MEDS: ASCORBIC ACID 500 MG TABLET PO SCH ×2 (08:37→20:34)
[2020-03-10] MEDS: SULFAMETHOXAZOLE/TRIMETHOPRIM 800/160MG TABLET PO SCH (08:38)
[2020-03-10] MEDS: APIXABAN 5 MG TABLET PO SCH ×2 (08:38→17:07)
[2020-03-10] MEDS: NIFEDIPINE XL 60MG TAB PO SCH (08:57)
[2020-03-10] MEDS: DOCUSATE SODIUM 250MG CAPSULE PO SCH (08:58)
[2020-03-10] MEDS: FUROSEMIDE 20MG/2ML VIAL IVP SCH (08:58)
[2020-03-10 11:42] LABS: BASOPHILS % 0.8 % (0.0-2.0); EOSINOPHILS % 4.1 % (0.0-5.0); HEMOGLOBIN. 8.9 g/dL (12.0-16.0); LYMPHOCYTES % 14.3 % (20.0-50.0); MEAN CORPUSCULAR HEMOGLOBIN 26.5 pg (28.0-32.0); MEAN CORPUSCULAR VOLUME 83.2 fL (81.0-99.0); MEAN PLATELET VOLUME 7.5 fl (7.4-10.4); MONOCYTES % 4.2 % (2.0-8.0); NEUTROPHILS % 76.6 % (40.0-76.0); PLATELET 427 x1000/uL (130-400); RED BLOOD CELL COUNT 3.37 mill/uL (4.2-5.4); RED CELL DISTRIBUTION WIDTH 16.2 % (11.6-14.6)
[2020-03-10 12:00] VITALS: BP 127/63
[2020-03-10 16:00] VITALS: BP 116/71
[2020-03-10 16:23] VITALS: BP 116/71
[2020-03-10] MEDS: MONTELUKAST SODIUM 10MG TABLET PO SCH (17:07)
[2020-03-10] MEDS: FAMOTIDINE 20MG TABLET PO SCH (20:34)
[2020-03-12] MEDS ORDERED: APIXABAN 5 MG TABLET PO SCH (17:00)
== END 2020-03-10 21:07 | DRG 177 ==
LOC: ER 12:56 → EDBEDREQTM 19:43 → EDBEDREQ 19:43 → 7EST 02-22 17:56
PROVIDERS: ADMIT Internal Medicine Geriatric Medicine; ATTEND Internal Medicine Geriatric Medicine
PROC: 05HY33Z Insertion of Infusion Device into Upper Vein, Percutaneous Approach (ICD-10-PCS; principal; 2020-03-07)
PROC: B54MZZA Ultrasonography of Right Upper Extremity Veins, Guidance (ICD-10-PCS; 2020-03-07)
DX: U07.1 COVID-19 (principal); A41.51 Sepsis due to Escherichia coli [E. coli]; E43 Unspecified severe protein-calorie malnutrition; N17.0 Acute kidney failure with tubular necrosis; J12.89 Other viral pneumonia; J96.01 Acute respiratory failure with hypoxia; A41.89 Other specified sepsis; E87.1 Hypo-osmolality and hyponatremia; N39.0 Urinary tract infection, site not specified; G93.49 Other encephalopathy; T82.838A Hemorrhage due to vascular prosthetic devices, implants and grafts, initial encounter; I82.4Z9 Acute embolism and thrombosis of unspecified deep veins of unspecified distal lower extremity; D72.810 Lymphocytopenia; F01.50 Vascular dementia, unspecified severity, without behavioral disturbance, psychotic disturbance, mood disturbance, and anxiety; F31.9 Bipolar disorder, unspecified; M19.90 Unspecified osteoarthritis, unspecified site; M79.605 Pain in left leg; E66.9 Obesity, unspecified; R79.89 Other specified abnormal findings of blood chemistry; M79.604 Pain in right leg; D47.3 Essential (hemorrhagic) thrombocythemia; J98.8 Other specified respiratory disorders; D72.829 Elevated white blood cell count, unspecified; D63.8 Anemia in other chronic diseases classified elsewhere; E11.649 Type 2 diabetes mellitus with hypoglycemia without coma; E11.65 Type 2 diabetes mellitus with hyperglycemia; I51.4 Myocarditis, unspecified; G30.9 Alzheimer's disease, unspecified; Y84.8 Other medical procedures as the cause of abnormal reaction of the patient, or of later complication, without mention of misadventure at the time of the procedure; F02.80 Dementia in other diseases classified elsewhere, unspecified severity, without behavioral disturbance, psychotic disturbance, mood disturbance, and anxiety; E87.5 Hyperkalemia; T38.0X5A Adverse effect of glucocorticoids and synthetic analogues, initial encounter; Y92.238 Other place in hospital as the place of occurrence of the external cause; Z68.26 Body mass index [BMI] 26.0-26.9, adult
CPT/HCPCS: 36415; 71045; 76937; 80048; 80053; 80076; 80202; 81003; 82728; 82962; 83036; 83525; 83540; 83550; 83605; 83615; 83735; 83880; 83930; 84100; 84145; 84206; 84443; 84484; 85014; 85018; 85025; 85027; 85379; 86140; 87077; 87186; 87635; 87804; 92610; 93005; 96365; 96372; 99285; J0456; J0692; J0696; J1650; J1815; J1940; J2405; J2543; J2920; J2930; J3370; J3490; J7060